=== PATIENT | female | born 1965 ===

== ENCOUNTER 2017-10-28 03:19 | Inpatient (IN) | payer OTHER ==
[2017-10-28] MEDS ORDERED: NACL 0.9% 500 ML 500 ML IV ONE (03:42)
[2017-10-28] MEDS ORDERED: DILAUDID IV ONE (03:42)
[2017-10-28] MEDS ORDERED: ZOFRAN IV ONE (03:42)
--- NOTE | 2017-10-28 03:43 | Emergency Department Report ---
ED General Adult HPI - General Chief complaint: Abdominal Pain Stated complaint: SMALL BOWEL OBSTRUCTION Time Seen by Provider: 10/28/17 03:42 Source: patient, family, EMS (ems notes not available at time of chart dictation), RN notes reviewed, old records reviewed Mode of arrival: Stretcher Limitations: No Limitations - History of Present Illness Initial comments: This is a 52-year-old female who was previously unknown to this provider. Has a past medical history of hypertension and hysterectomy, primary care physician at [facility]. Sent to the ER from outpatient [facility] for evaluation of abdominal pain and CT scan confirms small bowel obstruction with right-sided incarcerated inguinal hernia. Patient's symptoms started approximately one day ago. They're constant. They do not radiate anywhere. Patient given morphine and Zofran prior to my evaluation, she reports that this greatly improved her pain. She reports multiple episodes of emesis. -: Gradual Location: abdomen, pelvis Radiation: non-radiation Quality: aching Consistency: constant Improves with: medication Worsens with: movement Associated Symptoms: loss of appetite, malaise, nausea/vomiting, weakness. denies: chest pain, cough - Related Data Allergies Allergy/AdvReac Type Severity Reaction Status Date / Time Latex, Natural Rubber Allergy Hives Verified 10/28/17 03:32 povidone-iodine Allergy Hives Verified 10/28/17 03:32 [From Betadine] soap [From Betadine] Allergy Hives Verified 10/28/17 03:32 Sulfa (Sulfonamide Allergy Hives Verified 10/28/17 03:32 Antibiotics) ED Review of Systems ROS: Stated complaint: SMALL BOWEL OBSTRUCTION Other details as noted in HPI ED Past Medical Hx - Past Medical History Previous Medical History?: Yes Hx Hypertension: Yes Additional medical history: tyhroid - Surgical History Past Surgical History?: Yes Additional Surgical History: fibroids, left shoulder - Social History Smoking Status: Never Smoker Substance Use Type: None ED Physical Exam - General Limitations: No Limitations General appearance: alert, in no apparent distress - Head Head exam: Present: atraumatic, normocephalic - Eye Eye exam: Present: normal appearance, EOMI. Absent: nystagmus - ENT ENT exam: Present: normal exam, normal orophraynx, mucous membranes moist, normal external ear exam - Neck Neck exam: Present: normal inspection, full ROM - Respiratory Respiratory exam: Present: normal lung sounds bilaterally. Absent: respiratory distress - Cardiovascular Cardiovascular Exam: Present: regular rate, normal rhythm, normal heart sounds. Absent: systolic murmur, diastolic murmur, rubs, gallop - GI/Abdominal GI/Abdominal exam: Present: soft, tenderness, normal bowel sounds, hernia, other (there is a right-sided tender non-reducible inguinal hernia.). Absent: distended, guarding, rebound, rigid - Extremities Exam Extremities exam: Present: normal inspection, full ROM, normal capillary refill. Absent: calf tenderness - Back Exam Back exam: Present: normal inspection, full ROM. Absent: tenderness, CVA tenderness (R), paraspinal tenderness, vertebral tenderness - Neurological Exam Neurological exam: Present: alert, oriented X3, other (Extraocular movements intact. Tongue midline. No facial droop. Facial sensation intact to light touch in the V1, V2, V3 distribution bilaterally. 5 and 5 strength in 4 extremities.. Sensation is intact to light touch in 4 extremities.). Absent: motor sensory deficit - Psychiatric Psychiatric exam: Present: normal affect, normal mood - Skin Skin exam: Present: warm, dry, intact, normal color. Absent: rash ED Course Vital Signs 10/28/17 10/28/17 03:32 04:32 Temperature 98 F Pulse Rate 93 H Respiratory 18 18 Rate Blood Pressure 137/81 O2 Sat by Pulse 95 95 Oximetry - Reevaluation(s) Reevaluation #1: 10/28/17 04:55 Case and physical exam findings presents to the general surgeon on-call, Dr. Mojica, who indicates he is coming in to take the patient to the operating room. Request nothing by mouth. ED Medical Decision Making - Lab Data Result diagrams: 10/28/17 03:50 10/28/17 03:50 Vital Signs 10/28/17 03:32 Temperature 98 F Pulse Rate 93 H Respiratory 18 Rate Blood Pressure 137/81 O2 Sat by Pulse 95 Oximetry Labs 10/28/17 10/28/17 10/28/17 03:50 03:50 03:50 WBC 15.7 H RBC 4.43 Hgb 13.9 Hct 41.3 MCV 93 MCH 32 MCHC 34 RDW 13.8 Plt Count 331 Lymph % (Auto) 13.1 L [place] % (Auto) 5.6 Eos % (Auto) 0.1 Baso % (Auto) 0.3 Lymph # 2.1 [place] # 0.9 H Eos # 0.0 Baso # 0.0 Seg Neutrophils % 80.9 H Seg Neutrophils # 12.7 H PT 12.4 INR 0.88 APTT 29.3 Sodium 137 Potassium 4.7 Chloride 100.4 Carbon Dioxide 24 Anion Gap 17 BUN 10 Creatinine 0.6 L Estimated GFR > 60 BUN/Creatinine Ratio 17 Glucose 111 H Lactic Acid Calcium 8.1 L Blood Type 10/28/17 10/28/17 03:50 03:55 WBC RBC Hgb Hct MCV MCH MCHC RDW Plt Count Lymph % (Auto) [place] % (Auto) Eos % (Auto) Baso % (Auto) Lymph # [place] # Eos # Baso # Seg Neutrophils % Seg Neutrophils # PT INR APTT Sodium Potassium Chloride Carbon Dioxide Anion Gap BUN Creatinine Estimated GFR BUN/Creatinine Ratio Glucose Lactic Acid 0.90 Calcium Blood Type B POSITIVE - Radiology Data Radiology results: report reviewed CT scan with IV contrast from outside facility verbal report: Small bowel obstruction, multiple loops of distended inflamed small bowel noted, fluid noted within the right-sided inguinal hernia, obstructing bowel is noted. - Medical Decision Making Differential diagnosis, including but not limited to: Small bowel instruction secondary to incarcerated right-sided inguinal hernia next Assessment and plan: 52-year-old female sent to the ER for higher level of care from outpatient [facility] for clinically and radiographically confirmed right-sided incarcerated inguinal hernia. The patient is afebrile with reassuring vital signs and declines pain medication. I attempted to manually reduce the right-sided inguinal hernia but was unsuccessful. Case discussed with Dr. Solis, [place] physician who agrees and arthritis placement at this hospital. Case presented to the [facility] physician, Dr. Houston , patient is tentatively accepted to the medical service system and Gen. surgery agrees to follow in consultation. Gen. surgery has been paged, awaiting callback. Critical care attestation.: If time is entered above; I have spent that time in minutes in the direct care of this critically ill patient, excluding procedure time. ED Disposition Clinical Impression: Small bowel obstruction Disposition: OP ADMIT IP TO THIS HOSP Is pt being admited?: Yes Condition: Good Instructions: Abdominal Pain (ED) Referrals: PRIMARY CARE, [Primary Care Provider] - 3-5 Days
[2017-10-28 04:11] LABS: Basophils % (Auto) 0.3 % (0.0-1.8); Eosinophils % (Auto) 0.1 % (0.0-4.3); Hematocrit 41.3 % (30.3-42.9); Hemoglobin 13.9 gm/dl (10.1-14.3); Mean Corpuscular HGB Conc 34 % (30-34); Mean Corpuscular Hemoglobin 32 pg (28-32); Mean Corpuscular Volume 93 fl (79-97); Platelet Count 331 K/mm3 (140-440); Red Blood Count 4.43 M/mm3 (3.65-5.03); Red Cell Distribution Width 13.8 % (13.2-15.2); White Blood Count 15.7 K/mm3 (4.5-11.0)
[2017-10-28 04:21] LABS: INR 0.88 (0.87-1.13)
[2017-10-28 04:22] LABS: Partial Thromboplastin Time 29.3 Sec. (24.2-36.6)
[2017-10-28 04:25] LABS: Anion Gap 17 mmol/L; BUN/Creatinine Ratio 17; Blood Urea Nitrogen 10 mg/dL (7-17); Calcium 8.1 mg/dL (8.4-10.2); Carbon Dioxide 24 mmol/L (22-30); Chloride 100.4 mmol/L (98-107); Glucose 111 mg/dL (65-100); Potassium 4.7 mmol/L (3.6-5.0); Sodium 137 mmol/L (137-145)
--- NOTE | 2017-10-28 04:29 | History and Physical Report ---
History of Present Illness Chief complaint: My stomach hurts History of present illness: 52 YO Female with HTN, Uterine Fibroids S/P Resection presents to ED for evaluation. Pt states that she has experienced abdominal pain for the past 3-4 days with worsening symptoms over the past day. Pt was seen at an outpatient [place] facility and underwent a CT scan and physical exam which revealed an inguinal hernia and CT Scan that showed an incarcerated inguinal hernia on the right side as well as PSBO. Pt seen and evaluated in ED and found to have a hernia that was not amenable to reduction. Pt states that pain is 7/10, constant , worse with movement, relieved somewhat with nonmovement, improved with pain medication and zofran, nonradiating and is associated with nausea, vomiting, weakness, and inability to tolerated oral intake. Pt denies fever, chills,CP, Palpitations, Syncope, BRBPR, loose stools, bowel habit changes, trauma, recent ill contacts, productive cough, ingestion of food/water from new or different sources. Past History Past Medical History: hypertension Past Surgical History: hysterectomy, Other (left Shoulder) Social history: , lives with family. denies: smoking, alcohol abuse, prescription drug abuse Family history: no significant family history (reviewed) Medications and Allergies Allergies Allergy/AdvReac Type Severity Reaction Status Date / Time Latex, Natural Rubber Allergy Hives Verified 10/28/17 03:32 povidone-iodine Allergy Hives Verified 10/28/17 03:32 [From Betadine] soap [From Betadine] Allergy Hives Verified 10/28/17 03:32 Sulfa (Sulfonamide Allergy Hives Verified 10/28/17 03:32 Antibiotics) Review of Systems Constitutional: no weight loss, no weight gain, no fever, no chills, no sweats, no night sweats Ears, nose, mouth and throat: no ear pain, no ear discharge, no tinnitis, no decreased hearing, no nose pain, no nasal congestion, no nasal discharge Breasts: no change in shape, no swelling, no mass Cardiovascular: no chest pain, no orthopnea, no palpitations, no rapid/ irregular heart beat, no edema, no syncope, no lightheadedness Respiratory: no cough, no cough with sputum, no excessive sputum, no hemoptysis , no shortness of breath Gastrointestinal: abdominal pain, nausea, vomiting, loss of appetite, no diarrhea, no constipation, no change in bowel habits, no hematemesis, no coffee ground emesis, no melena, no hematochezia Genitourinary Female: no pelvic pain, no flank pain, no menorrhagia, no dysuria , no urinary frequency, no urgency Rectal: no pain, no incontinence, no bleeding Musculoskeletal: no neck stiffness, no neck pain, no shooting arm pain, no arm numbness/tingling, no low back pain, no shooting leg pain, no leg numbness/ tingling Integumentary: no rash, no pruritis, no redness, no sores, no wounds Neurological: no head injury, no transient paralysis, no paralysis, no weakness , no parathesias, no numbness, no tingling, no seizures, no syncope Psychiatric: no anxiety, no memory loss, no change in sleep habits, no sleep disturbances, no insomnia, no hypersomnia, no change in appetite, no change in libido Endocrine: no cold intolerance, no heat intolerance, no polyphagia, no excessive thirst, no polydipsia, no polyuria, no nocturia Hematologic/Lymphatic: no easy bruising, no easy bleeding Allergic/Immunologic: no urticaria, no allergic rhinitis, no wheezing Exam - Constitutional Vitals: Temp Pulse Resp BP Pulse Ox 98 F 93 H 18 137/81 95 10/28/17 03:32 10/28/17 03:32 10/28/17 03:32 10/28/17 03:32 10/28/17 03:32 General appearance: Present: mild distress - EENT Eyes: Present: PERRL ENT: hearing intact, clear oral mucosa - Neck Neck: Present: supple, normal ROM - Respiratory Respiratory effort: normal Respiratory: bilateral: CTA - Cardiovascular Heart Sounds: Present: S1 & S2. Absent: rub, click - Extremities Extremities: pulses symmetrical, No edema Peripheral Pulses: within normal limits - Abdominal General gastrointestinal: Present: soft, tender, hypoactive bowel sounds, hernia. Absent: hepatomegaly, splenomegaly Localized gastrointestinal: tender: RLQ, guarding: RLQ, rebound: RLQ Female genitourinary: Present: normal - Rectal Rectal Exam: normal rectal tone - Integumentary Integumentary: Present: clear, warm, dry - Musculoskeletal Musculoskeletal: gait normal, strength equal bilaterally - Psychiatric Psychiatric: appropriate mood/affect, intact judgment & insight Results - Labs CBC & Chem 7: 10/28/17 03:50 10/28/17 03:50 Labs: Abnormal lab results 10/28/17 10/28/17 Range/Units 03:50 03:50 WBC 15.7 H (4.5-11.0) K/mm3 Lymph % (Auto) 13.1 L (13.4-35.0) % [place] # 0.9 H (0.0-0.8) K/mm3 Seg Neutrophils % 80.9 H (40.0-70.0) % Seg Neutrophils # 12.7 H (1.8-7.7) K/mm3 Creatinine 0.6 L (0.7-1.2) mg/dL Glucose 111 H (65-100) mg/dL Calcium 8.1 L (8.4-10.2) mg/dL Assessment and Plan - Patient Problems (1) Sepsis Current Visit: Yes Status: Acute Qualifiers: Sepsis type: sepsis due to unspecified organism Qualified Code(s): A41.9 - Sepsis, unspecified organism Plan to address problem: IV abx, Serial lactic acid, monitor uop q shift, urinalysis, blood cultures, IVF resuscitation, (2) Incarcerated inguinal hernia Current Visit: Yes Status: Acute Plan to address problem: Bowel rest, pain control, serial lactic acid level, CT abdomen pelvis, Surgery consulted, bowel rest, (3) HTN (hypertension) Current Visit: Yes Status: Acute Plan to address problem: monitor bp q shift, IV hydralazine prn for systolic above 155, continue medical management. (4) Small bowel obstruction Current Visit: Yes Status: Acute Plan to address problem: Bowel rest, surgery consulted, serial abdominal exam, (5) DVT prophylaxis Current Visit: Yes Status: Acute
[2017-10-28] MEDS ORDERED: VANCOMYCIN VIAL IV ONE (04:33)
[2017-10-28] MEDS ORDERED: NACL 0.9% 1000 ML IV ONE (04:33)
[2017-10-28] MEDS ORDERED: TYLENOL PO PRN (04:33)
[2017-10-28] MEDS ORDERED: PROVENTIL IH PRN (04:33)
[2017-10-28] MEDS ORDERED: VANCOMYCIN 1,500 MG in NACL 0.9% 500 ML 500 ML IV ONE (05:00)
[2017-10-28] MEDS ORDERED: VANCOMYCIN PHARMACY TO DOSE IV SCH (05:00)
[2017-10-28] MEDS ORDERED: SUBLIMAZE ONE (05:57)
[2017-10-28] MEDS ORDERED: DIPRIVAN 10 MG/ML IV ONE (05:57)
[2017-10-28] MEDS ORDERED: ZOSYN/NS 4.5GM/100ML 4.5 GM/100 ML VIAL IV SCH (06:00)
[2017-10-28] MEDS ORDERED: XYLOCAINE MPF 2% ONE (06:03)
[2017-10-28] MEDS ORDERED: ZEMURON IV ONE (06:03)
[2017-10-28] MEDS ORDERED: QUELICIN ONE (06:03)
[2017-10-28] MEDS ORDERED: APRESOLINE IV PRN (06:08)
[2017-10-28] MEDS ORDERED: PEPCID IV ONE (06:47)
[2017-10-28] MEDS ORDERED: NACL 0.9% IR ONE (06:53)
--- NOTE | 2017-10-28 06:54 | Anesthesia Day of Surgery ---
Anesthesia Day of Surgery - Day of Surgery Patient Examined: Yes Patient H&P Reviewed: Yes Patient is NPO: Yes (FSP)
--- NOTE | 2017-10-28 06:54 | Anesthesia Consultation ---
Anesthesia Consult and Med Hx Date of service: 10/28/17 - Airway Anesthetic Teeth Evaluation: Good ROM Head & Neck: Adequate Mental/Hyoid Distance: Adequate Mallampati Class: Class II Intubation Access Assessment: Probably Good - Pulmonary Exam CTA: Yes - Cardiac Exam Cardiac Exam: RRR - Pre-Operative Health Status ASA Pre-Surgery Classification: ASA2, Emergency Proposed Anesthetic Plan: General - Cardiovascular System Hx Hypertension: Yes - Additional Comments Anesthesia Medical History Comments: Incarcerated inguinal hernia eith SBO. Recent nausea and vomiting.
[2017-10-28] MEDS ORDERED: ZOFRAN IV PRN (06:55)
[2017-10-28] MEDS ORDERED: PEPCID IV NR (07:00)
[2017-10-28] MEDS ORDERED: DECADRON ONE (07:25)
[2017-10-28] MEDS ORDERED: LACTATED RINGERS 1,000 ML ONE (07:39)
[2017-10-28] MEDS ORDERED: TORADOL ONE (07:48)
[2017-10-28] MEDS ORDERED: ZOFRAN ONE (07:48)
[2017-10-28] MEDS ORDERED: NEOSTIGMINE ONE (07:49)
[2017-10-28] MEDS ORDERED: ROBINUL ONE ×2 (07:49→08:13)
--- NOTE | 2017-10-28 08:46 | Post Anesthesia Evaluation ---
- Post Anesthesia Evaluation Patient Participated: Yes Airway Patent: Yes Stable Respiratory Function: Yes Temp > 96.8F: Yes Pain Manageable: Yes Adequeate Hydration: Yes Anesthesia Complications: No
[2017-10-28] MEDS ORDERED: DILAUDID ONE (09:13)
[2017-10-28] MEDS: DILAUDID IV PRN ×2 (09:15→09:25)
--- NOTE | 2017-10-28 10:21 | Operative Report ---
PREOPERATIVE DIAGNOSIS: Small bowel obstruction secondary to incarcerated right inguinal hernia. POSTOPERATIVE DIAGNOSIS: Small bowel obstruction secondary to incarcerated right inguinal hernia. PROCEDURE: 1. Attempted reduction of incarcerated hernia. 2. Exploratory laparotomy and right inguinal hernia repair with mesh after reduction of incarceration. SURGEON: Damian Mojica MD ANESTHESIA: General. ESTIMATED BLOOD LOSS: Minimal. DRAINS: None. COMPLICATIONS: None. FINDINGS: Indeed an incarcerated right inguinal hernia involving small bowel. Fortunately, small was viable upon reduction. DESCRIPTION OF PROCEDURE: The patient was taken to the operating room, prepped and draped in usual sterile fashion and placed in a steep Trendelenburg position. Under full relaxation, attempts were made to reduce the incarcerated hernia, but this proved unsuccessful. Midline incision was then made and abdomen entered. Upon entrance into the abdomen again, incarcerated small bowel inguinal hernia was indeed confirmed. The bowel was slowly retracted until it was able to be reduced. The bowel was then carefully inspected and noted to be viable. The hernia was then closed with interrupted #1 Surgilon sutures. A Composix Parietex mesh was then also on laid over the repair site and tacked to Rogelio's ligament and anteriorly to the rectus muscle and laterally above iliopubic tract. The area was then carefully inspected and noted to be well covered and reconstructed. The small bowel functions once again inspected and noted to be perfectly viable. The entire area was then irrigated copiously and dried. Checked for hemostasis and noted to be dry. Fascia was then closed with interrupted #1 Vicryl suture. Subcutaneous tissues irrigated and skin closed with viet. The patient tolerated the procedure well and left the OR in stable condition. JOB# [id number] FP/NTS
--- NOTE | 2017-10-28 10:38 | Progress Note ---
Assessment and Plan Assessment and plan: Sepsis IV abx, Serial lactic acid, monitor uop q shift, f/u blood cultures, IVF resuscitation, (2) Incarcerated inguinal hernia Pt. s/p exp lap and right inguinal hernia repair with mesh after reduction of incarceration (3) HTN (hypertension) monitor bp q shift, IV hydralazine prn for systolic above 155, continue medical management. (4) Small bowel obstruction S/p surgery as above. Surgery following History Interval history: Pt seen in PACU Hospitalist Physical - Constitutional Vitals: Temp Pulse Resp BP Pulse Ox 98.7 F 93 H 18 147/84 96 10/28/17 09:50 10/28/17 09:50 10/28/17 09:50 10/28/17 09:50 10/28/17 09:50 General appearance: Present: no acute distress, other (with NRB mask) - EENT Eyes: Present: PERRL, EOM intact ENT: hearing intact, clear oral mucosa, dentition normal - Neck Neck: Present: supple, normal ROM - Respiratory Respiratory effort: normal Respiratory: bilateral: diminished - Cardiovascular Rhythm: regular Heart Sounds: Present: S1 & S2. Absent: gallop, rub - Extremities Extremities: no ischemia, No edema, Full ROM - Abdominal General gastrointestinal: soft, non-tender, non-distended, normal bowel sounds - Integumentary Integumentary: Present: clear, warm, dry - Neurologic Neurologic: CNII-XII intact, moves all extremities Results - Labs CBC & Chem 7: 10/28/17 03:50 10/28/17 03:50 Labs: Laboratory Last Values WBC 15.7 K/mm3 (4.5-11.0) H 10/28/17 03:50 RBC 4.43 M/mm3 (3.65-5.03) 10/28/17 03:50 Hgb 13.9 gm/dl (10.1-14.3) 10/28/17 03:50 Hct 41.3 % (30.3-42.9) 10/28/17 03:50 MCV 93 fl (79-97) 10/28/17 03:50 MCH 32 pg (28-32) 10/28/17 03:50 MCHC 34 % (30-34) 10/28/17 03:50 RDW 13.8 % (13.2-15.2) 10/28/17 03:50 Plt Count 331 K/mm3 (140-440) 10/28/17 03:50 Lymph % (Auto) 13.1 % (13.4-35.0) L 10/28/17 03:50 [place] % (Auto) 5.6 % (0.0-7.3) 10/28/17 03:50 Eos % (Auto) 0.1 % (0.0-4.3) 10/28/17 03:50 Baso % (Auto) 0.3 % (0.0-1.8) 10/28/17 03:50 Lymph # 2.1 K/mm3 (1.2-5.4) 10/28/17 03:50 [place] # 0.9 K/mm3 (0.0-0.8) H 10/28/17 03:50 Eos # 0.0 K/mm3 (0.0-0.4) 10/28/17 03:50 Baso # 0.0 K/mm3 (0.0-0.1) 10/28/17 03:50 Seg Neutrophils % 80.9 % (40.0-70.0) H 10/28/17 03:50 Seg Neutrophils # 12.7 K/mm3 (1.8-7.7) H 10/28/17 03:50 PT 12.4 Sec. (12.2-14.9) 10/28/17 03:50 INR 0.88 (0.87-1.13) 10/28/17 03:50 APTT 29.3 Sec. (24.2-36.6) 10/28/17 03:50 Sodium 137 mmol/L (137-145) 10/28/17 03:50 Potassium 4.7 mmol/L (3.6-5.0) 10/28/17 03:50 Chloride 100.4 mmol/L (98-107) 10/28/17 03:50 Carbon Dioxide 24 mmol/L (22-30) 10/28/17 03:50 Anion Gap 17 mmol/L 10/28/17 03:50 BUN 10 mg/dL (7-17) 10/28/17 03:50 Creatinine 0.6 mg/dL (0.7-1.2) L 10/28/17 03:50 Estimated GFR > 60 ml/min 10/28/17 03:50 BUN/Creatinine Ratio 17 % 10/28/17 03:50 Glucose 111 mg/dL (65-100) H 10/28/17 03:50 Lactic Acid 0.90 mmol/L (0.7-2.0) 10/28/17 03:50 Calcium 8.1 mg/dL (8.4-10.2) L 10/28/17 03:50 Blood Type B POSITIVE 10/28/17 03:55 Antibody Screen Negative 10/28/17 03:55
[2017-10-28 12:08] LABS: Bilirubin,Urine NEG (Negative); Blood,Urine MOD (Negative); Ketones,Urine NEG (Negative); Leukocyte Esterase,Urine NEG (Negative); Mucus,Urine FEW /HPF; Nitrite,Urine NEG (Negative); Protein,Urine <15 mg/dL mg/dL (Negative); Urobilinogen,Urine < 2.0 mg/dL (<2.0)
[2017-10-28] MEDS: D5/0.45NS 1,000 ML IV SCH (17:00)
[2017-10-28] MEDS: MORPHINE IV PRN ×2 (17:01→22:31)
[2017-10-28] MEDS ORDERED: VANCOMYCIN/NS 1 GM/250 ML 1 GM/250 ML BAG IV SCH (18:00)
--- NOTE | 2017-10-28 23:16 | Consultation ---
REASON FOR CONSULTATION: Incarcerated right inguinal hernia with subsequent small-bowel obstruction. HISTORY OF PRESENT ILLNESS: The patient is a pleasant 52-year-old female who presents to the Emergency Room with recent onset of right groin pain accompanied by nausea and vomiting. PAST MEDICAL HISTORY: Pertinent for hypertension. PAST SURGICAL HISTORY: Status post removal of uterine fibroid, also T and A and left shoulder surgery. ALLERGIES: Allergic to SULFA. MEDICATIONS: Include lisinopril and aspirin. FAMILY HISTORY: Negative. SOCIAL HISTORY: Negative. REVIEW OF SYSTEMS: Noncontributory. PHYSICAL EXAMINATION: GENERAL: At this time reveals the patient to be awake, alert, cooperative, in moderate discomfort, but in no acute distress. VITAL SIGNS: Show blood pressure 154/77, pulse of 103, respirations of 16. ABDOMEN: Examination of the abdomen reveals it to be soft and nontender. There is, however, a nonreducible right groin mass consistent with incarcerated inguinal hernia. DIAGNOSTIC STUDIES: A CT scan of the abdomen is consistent with an incarcerated right inguinal hernia and subsequent small-bowel obstruction. IMPRESSION: At this time is a hypertensive 52-year-old female with incarcerated right inguinal hernia and a small-bowel obstruction. Plan is to proceed with emergency surgical intervention. We will attempt a reduction of the hernia under anesthesia. Possible subsequent then right groin exploration and hernia repair with mesh. If hernia is not able to be reduced, then we will proceed with exploratory laparotomy and again a hernia repair with mesh, possible bowel resection. JOB# [id number] FP/NTS
[2017-10-29] MEDS: D5/0.45NS 1,000 ML IV SCH ×3 (02:35→17:00)
[2017-10-29] MEDS: MORPHINE IV PRN ×2 (02:59→12:25)
[2017-10-29 05:56] LABS: Basophils % (Auto) 0.2 % (0.0-1.8); Eosinophils % (Auto) 0.2 % (0.0-4.3); Hematocrit 39.2 % (30.3-42.9); Hemoglobin 12.5 gm/dl (10.1-14.3); Mean Corpuscular HGB Conc 32 % (30-34); Mean Corpuscular Hemoglobin 30 pg (28-32); Mean Corpuscular Volume 94 fl (79-97); Platelet Count 315 K/mm3 (140-440); Red Blood Count 4.17 M/mm3 (3.65-5.03); Red Cell Distribution Width 13.9 % (13.2-15.2); White Blood Count 15.1 K/mm3 (4.5-11.0)
[2017-10-29 06:14] LABS: Anion Gap 14 mmol/L; BUN/Creatinine Ratio 12; Blood Urea Nitrogen 7 mg/dL (7-17); Calcium 7.9 mg/dL (8.4-10.2); Carbon Dioxide 28 mmol/L (22-30); Chloride 102.7 mmol/L (98-107); Glucose 101 mg/dL (65-100); Potassium 3.7 mmol/L (3.6-5.0); Sodium 141 mmol/L (137-145)
--- NOTE | 2017-10-29 10:38 | Progress Note ---
Assessment and Plan Assessment and plan: Sepsis IV abx, Serial lactic acid, monitor uop q shift, f/u blood cultures, IVF resuscitation. Patient still with leukocytosis (2) Incarcerated inguinal hernia Pt. s/p exp lap and right inguinal hernia repair with mesh after reduction of incarceration (3) HTN (hypertension) monitor bp q shift, IV hydralazine prn for systolic above 155, continue medical management. (4) Small bowel obstruction S/p surgery as above. Surgery following. Advance diet per surgery History Interval history: c/o abd pain Hospitalist Physical - Constitutional Vitals: Temp Pulse Resp BP Pulse Ox 99.1 F 89 18 135/80 99 10/29/17 07:56 10/29/17 07:56 10/29/17 07:56 10/29/17 07:56 10/29/17 08:43 General appearance: Present: no acute distress, other (with NRB mask) - EENT Eyes: Present: PERRL, EOM intact ENT: hearing intact, clear oral mucosa, dentition normal - Neck Neck: Present: supple, normal ROM - Respiratory Respiratory effort: normal Respiratory: bilateral: CTA - Cardiovascular Rhythm: regular Heart Sounds: Present: S1 & S2. Absent: gallop, rub - Extremities Extremities: no ischemia, No edema, Full ROM - Abdominal General gastrointestinal: soft, tender, non-distended, normal bowel sounds Localized gastrointestinal: tender: diffuse - Integumentary Integumentary: Present: clear, warm, dry - Neurologic Neurologic: CNII-XII intact, moves all extremities Results - Labs CBC & Chem 7: 10/29/17 05:31 10/29/17 05:31 Labs: Laboratory Last Values WBC 15.1 K/mm3 (4.5-11.0) H 10/29/17 05:31 RBC 4.17 M/mm3 (3.65-5.03) 10/29/17 05:31 Hgb 12.5 gm/dl (10.1-14.3) 10/29/17 05:31 Hct 39.2 % (30.3-42.9) 10/29/17 05:31 MCV 94 fl (79-97) 10/29/17 05:31 MCH 30 pg (28-32) 10/29/17 05:31 MCHC 32 % (30-34) 10/29/17 05:31 RDW 13.9 % (13.2-15.2) 10/29/17 05:31 Plt Count 315 K/mm3 (140-440) 10/29/17 05:31 Lymph % (Auto) 16.5 % (13.4-35.0) 10/29/17 05:31 [place] % (Auto) 12.9 % (0.0-7.3) H 10/29/17 05:31 Eos % (Auto) 0.2 % (0.0-4.3) 10/29/17 05:31 Baso % (Auto) 0.2 % (0.0-1.8) 10/29/17 05:31 Lymph # 2.5 K/mm3 (1.2-5.4) 10/29/17 05:31 [place] # 2.0 K/mm3 (0.0-0.8) H 10/29/17 05:31 Eos # 0.0 K/mm3 (0.0-0.4) 10/29/17 05:31 Baso # 0.0 K/mm3 (0.0-0.1) 10/29/17 05:31 Seg Neutrophils % 70.2 % (40.0-70.0) H 10/29/17 05:31 Seg Neutrophils # 10.6 K/mm3 (1.8-7.7) H 10/29/17 05:31 PT 12.4 Sec. (12.2-14.9) 10/28/17 03:50 INR 0.88 (0.87-1.13) 10/28/17 03:50 APTT 29.3 Sec. (24.2-36.6) 10/28/17 03:50 Sodium 141 mmol/L (137-145) 10/29/17 05:31 Potassium 3.7 mmol/L (3.6-5.0) D 10/29/17 05:31 Chloride 102.7 mmol/L (98-107) 10/29/17 05:31 Carbon Dioxide 28 mmol/L (22-30) 10/29/17 05:31 Anion Gap 14 mmol/L 10/29/17 05:31 BUN 7 mg/dL (7-17) 10/29/17 05:31 Creatinine 0.6 mg/dL (0.7-1.2) L 10/29/17 05:31 Estimated GFR > 60 ml/min 10/29/17 05:31 BUN/Creatinine Ratio 12 % 10/29/17 05:31 Glucose 101 mg/dL (65-100) H 10/29/17 05:31 Lactic Acid 1.10 mmol/L (0.7-2.0) 10/28/17 13:18 Calcium 7.9 mg/dL (8.4-10.2) L 10/29/17 05:31 Urine Color Yellow (Yellow) 10/28/17 11:30 Urine Turbidity Clear (Clear) 10/28/17 11:30 Urine pH 5.0 (5.0-7.0) 10/28/17 11:30 Ur Specific [place] 1.023 (1.003-1.030) 10/28/17 11:30 Urine Protein <15 mg/dl mg/dL (Negative) 10/28/17 11:30 Urine Glucose (UA) 50 mg/dL (Negative) 10/28/17 11:30 Urine Ketones Neg mg/dL (Negative) 10/28/17 11:30 Urine Blood Mod (Negative) 10/28/17 11:30 Urine Nitrite Neg (Negative) 10/28/17 11:30 Urine Bilirubin Neg (Negative) 10/28/17 11:30 Urine Urobilinogen < 2.0 mg/dL (<2.0) 10/28/17 11:30 Ur Leukocyte Esterase Neg (Negative) 10/28/17 11:30 Urine WBC (Auto) 3.0 /HPF (0.0-6.0) 10/28/17 11:30 Urine RBC (Auto) 16.0 /HPF (0.0-6.0) 10/28/17 11:30 Urine Mucus Few /HPF 10/28/17 11:30 Blood Type B POSITIVE 10/28/17 03:55 Antibody Screen Negative 10/28/17 03:55
--- NOTE | 2017-10-29 14:47 | Progress Note ---
Assessment and Plan POD # 1 Pt feeling well. no compl. burping - flatus. ambulating down halls Abd soft, dressings dry. - BS continue ambulation and IS possible cl liq in am pending assessment Selected Entries 10/29/17 13:00 Temperature 97.7 F Respiratory 18 Rate Blood Pressure 151/83 [Left] Laboratory Tests 10/29/17 10/29/17 05:31 05:31 WBC 15.1 H Hgb 12.5 Hct 39.2 Sodium 141 Potassium 3.7 D Chloride 102.7 Carbon Dioxide 28 BUN 7 Creatinine 0.6 L Objective Vital Signs - 12hr 10/29/17 10/29/17 10/29/17 04:39 07:56 08:43 Temperature 99.0 F 99.1 F Pulse Rate 77 89 Respiratory 20 18 Rate Blood Pressure 135/80 Blood Pressure 125/75 [Left] O2 Sat by Pulse 96 97 99 Oximetry 10/29/17 10/29/17 12:00 13:00 Temperature 97.7 F Pulse Rate 100 H 100 H Respiratory 18 Rate Blood Pressure Blood Pressure 151/83 [Left] O2 Sat by Pulse 98 Oximetry - Labs 10/29/17 05:31 10/29/17 05:31 Diabetes panel 10/29/17 Range/Units 05:31 Sodium 141 (137-145) mmol/L Potassium 3.7 D (3.6-5.0) mmol/L Chloride 102.7 (98-107) mmol/L Carbon Dioxide 28 (22-30) mmol/L BUN 7 (7-17) mg/dL Creatinine 0.6 L (0.7-1.2) mg/dL Glucose 101 H (65-100) mg/dL Calcium 7.9 L (8.4-10.2) mg/dL Calcium panel 10/29/17 Range/Units 05:31 Calcium 7.9 L (8.4-10.2) mg/dL Pituitary panel 10/29/17 Range/Units 05:31 Sodium 141 (137-145) mmol/L Potassium 3.7 D (3.6-5.0) mmol/L Chloride 102.7 (98-107) mmol/L Carbon Dioxide 28 (22-30) mmol/L BUN 7 (7-17) mg/dL Creatinine 0.6 L (0.7-1.2) mg/dL Glucose 101 H (65-100) mg/dL Calcium 7.9 L (8.4-10.2) mg/dL Adrenal panel 10/29/17 Range/Units 05:31 Sodium 141 (137-145) mmol/L Potassium 3.7 D (3.6-5.0) mmol/L Chloride 102.7 (98-107) mmol/L Carbon Dioxide 28 (22-30) mmol/L BUN 7 (7-17) mg/dL Creatinine 0.6 L (0.7-1.2) mg/dL Glucose 101 H (65-100) mg/dL Calcium 7.9 L (8.4-10.2) mg/dL
[2017-10-29] MEDS ORDERED: ZOFRAN IV PRN (19:38)
[2017-10-29] MEDS: TORADOL IV PRN (20:26)
[2017-10-30 05:01] LABS: Basophils % (Auto) 0.3 % (0.0-1.8); Eosinophils % (Auto) 0.5 % (0.0-4.3); Hematocrit 37.1 % (30.3-42.9); Hemoglobin 12.5 gm/dl (10.1-14.3); Mean Corpuscular HGB Conc 34 % (30-34); Mean Corpuscular Hemoglobin 32 pg (28-32); Mean Corpuscular Volume 94 fl (79-97); Platelet Count 288 K/mm3 (140-440); Red Blood Count 3.97 M/mm3 (3.65-5.03); Red Cell Distribution Width 14.2 % (13.2-15.2)
[2017-10-30 05:07] LABS: Anion Gap 11 mmol/L; BUN/Creatinine Ratio 8; Blood Urea Nitrogen 5 mg/dL (7-17); Calcium 8.1 mg/dL (8.4-10.2); Carbon Dioxide 30 mmol/L (22-30); Chloride 100.3 mmol/L (98-107); Glucose 108 mg/dL (65-100); Potassium 3.6 mmol/L (3.6-5.0); Sodium 138 mmol/L (137-145)
[2017-10-30] MEDS: TORADOL IV PRN (05:24)
[2017-10-30] MEDS: D5/0.45NS 1,000 ML IV SCH ×3 (05:25→16:05)
[2017-10-30] MEDS ORDERED: DULCOLAX PR PRN (11:09)
--- NOTE | 2017-10-30 11:31 | Progress Note ---
Assessment and Plan POD #2 Pt feeling well. ambulating down halls. neg flatus. burping Abd - dressings dry. 1+ distention non tender wbc down ileus stable wbc down continue ambulation ice chips and popsicles dulcolax supp Selected Entries 10/30/17 10/30/17 05:01 08:13 Temperature 98.9 F Pulse Rate 84 O2 Sat by Pulse 96 Oximetry Blood Pressure 140/78 Laboratory Tests 10/29/17 10/30/17 10/30/17 05:31 04:29 04:29 WBC 15.1 H 9.0 Hgb 12.5 Hct 37.1 Sodium 138 Potassium 3.6 Chloride 100.3 Carbon Dioxide 30 Anion Gap 11 BUN 5 L Creatinine 0.6 L Objective Vital Signs - 12hr 10/30/17 10/30/17 10/30/17 00:14 05:01 08:13 Temperature 98.9 F 98.9 F Pulse Rate 78 84 Respiratory 16 16 Rate Blood Pressure 137/77 140/78 O2 Sat by Pulse 97 96 96 Oximetry - Labs 10/30/17 04:29 10/30/17 04:29 Diabetes panel 10/30/17 Range/Units 04:29 Sodium 138 (137-145) mmol/L Potassium 3.6 (3.6-5.0) mmol/L Chloride 100.3 (98-107) mmol/L Carbon Dioxide 30 (22-30) mmol/L BUN 5 L (7-17) mg/dL Creatinine 0.6 L (0.7-1.2) mg/dL Glucose 108 H (65-100) mg/dL Calcium 8.1 L (8.4-10.2) mg/dL Calcium panel 10/30/17 Range/Units 04:29 Calcium 8.1 L (8.4-10.2) mg/dL Pituitary panel 10/30/17 Range/Units 04:29 Sodium 138 (137-145) mmol/L Potassium 3.6 (3.6-5.0) mmol/L Chloride 100.3 (98-107) mmol/L Carbon Dioxide 30 (22-30) mmol/L BUN 5 L (7-17) mg/dL Creatinine 0.6 L (0.7-1.2) mg/dL Glucose 108 H (65-100) mg/dL Calcium 8.1 L (8.4-10.2) mg/dL Adrenal panel 10/30/17 Range/Units 04:29 Sodium 138 (137-145) mmol/L Potassium 3.6 (3.6-5.0) mmol/L Chloride 100.3 (98-107) mmol/L Carbon Dioxide 30 (22-30) mmol/L BUN 5 L (7-17) mg/dL Creatinine 0.6 L (0.7-1.2) mg/dL Glucose 108 H (65-100) mg/dL Calcium 8.1 L (8.4-10.2) mg/dL
--- NOTE | 2017-10-30 14:26 | Progress Note ---
Assessment and Plan Assessment and plan: Small bowel obstruction due to incacerated inguinal hernia s/p exploratory lap, reduction of hernia, hernia repair with mesh placement. Incacerated inguinal hernia s/p surgery Hypertension. BP stable DVT prophylaxis with SCDs. She is ambulatory. Full code status History Interval history: Patient had surgery 2 days ago for small bowel obstruction from incarcerated inguinal hernia . Hospitalist Physical - Physical exam Narrative exam: GEN APPEARANCE : Not in acute distress, HEENT: Normocephalic Atraumatic NECK : supple, no JVD LUNGS: clear to auscultation bilaterally, no rales, no wheeze HEART: S1 and S2 regular, no murmurs, rubs or gallop, ABD: Soft, mild tender,abdominal binder, no distension, EXT: No edema, no clubbing, no cyanosis NEURO: Awake,alert,oriented x 3, moves all extremities, non focal Psych: Normal mood - Constitutional Vitals: Temp Pulse Resp BP Pulse Ox 98.9 F 84 16 140/78 96 10/30/17 05:01 10/30/17 05:01 10/30/17 05:01 10/30/17 05:01 10/30/17 08:13 General appearance: Present: no acute distress, other (with NRB mask) Results - Labs CBC & Chem 7: 10/30/17 04:29 11/01/17 05:29 Labs: Laboratory Last Values WBC 9.0 K/mm3 (4.5-11.0) 10/30/17 04:29 RBC 3.97 M/mm3 (3.65-5.03) 10/30/17 04:29 Hgb 12.5 gm/dl (10.1-14.3) 10/30/17 04:29 Hct 37.1 % (30.3-42.9) 10/30/17 04:29 MCV 94 fl (79-97) 10/30/17 04:29 MCH 32 pg (28-32) 10/30/17 04:29 MCHC 34 % (30-34) 10/30/17 04:29 RDW 14.2 % (13.2-15.2) 10/30/17 04:29 Plt Count 288 K/mm3 (140-440) 10/30/17 04:29 Lymph % (Auto) 27.9 % (13.4-35.0) 10/30/17 04:29 [place] % (Auto) 13.6 % (0.0-7.3) H 10/30/17 04:29 Eos % (Auto) 0.5 % (0.0-4.3) 10/30/17 04:29 Baso % (Auto) 0.3 % (0.0-1.8) 10/30/17 04:29 Lymph # 2.5 K/mm3 (1.2-5.4) 10/30/17 04:29 [place] # 1.2 K/mm3 (0.0-0.8) H 10/30/17 04:29 Eos # 0.0 K/mm3 (0.0-0.4) 10/30/17 04:29 Baso # 0.0 K/mm3 (0.0-0.1) 10/30/17 04:29 Seg Neutrophils % 57.7 % (40.0-70.0) 10/30/17 04:29 Seg Neutrophils # 5.2 K/mm3 (1.8-7.7) 10/30/17 04:29 PT 12.4 Sec. (12.2-14.9) 10/28/17 03:50 INR 0.88 (0.87-1.13) 10/28/17 03:50 APTT 29.3 Sec. (24.2-36.6) 10/28/17 03:50 Sodium 138 mmol/L (137-145) 10/30/17 04:29 Potassium 3.6 mmol/L (3.6-5.0) 10/30/17 04:29 Chloride 100.3 mmol/L (98-107) 10/30/17 04:29 Carbon Dioxide 30 mmol/L (22-30) 10/30/17 04:29 Anion Gap 11 mmol/L 10/30/17 04:29 BUN 5 mg/dL (7-17) L 10/30/17 04:29 Creatinine 0.6 mg/dL (0.7-1.2) L 10/30/17 04:29 Estimated GFR > 60 ml/min 10/30/17 04:29 BUN/Creatinine Ratio 8 % 10/30/17 04:29 Glucose 108 mg/dL (65-100) H 10/30/17 04:29 Lactic Acid 1.10 mmol/L (0.7-2.0) 10/28/17 13:18 Calcium 8.1 mg/dL (8.4-10.2) L 10/30/17 04:29 Urine Color Yellow (Yellow) 10/28/17 11:30 Urine Turbidity Clear (Clear) 10/28/17 11:30 Urine pH 5.0 (5.0-7.0) 10/28/17 11:30 Ur Specific [place] 1.023 (1.003-1.030) 10/28/17 11:30 Urine Protein <15 mg/dl mg/dL (Negative) 10/28/17 11:30 Urine Glucose (UA) 50 mg/dL (Negative) 10/28/17 11:30 Urine Ketones Neg mg/dL (Negative) 10/28/17 11:30 Urine Blood Mod (Negative) 10/28/17 11:30 Urine Nitrite Neg (Negative) 10/28/17 11:30 Urine Bilirubin Neg (Negative) 10/28/17 11:30 Urine Urobilinogen < 2.0 mg/dL (<2.0) 10/28/17 11:30 Ur Leukocyte Esterase Neg (Negative) 10/28/17 11:30 Urine WBC (Auto) 3.0 /HPF (0.0-6.0) 10/28/17 11:30 Urine RBC (Auto) 16.0 /HPF (0.0-6.0) 10/28/17 11:30 Urine Mucus Few /HPF 10/28/17 11:30 Blood Type B POSITIVE 10/28/17 03:55 Antibody Screen Negative 10/28/17 03:55
--- NOTE | 2017-10-31 10:13 | Progress Note ---
Assessment and Plan POD #3 Pt feeling well. 2 BM's Abd soft. hypoactive BS stable attempt cl liq non carbonated Selected Entries 10/31/17 07:00 Temperature 98.7 F Pulse Rate 87 Respiratory 18 Rate Blood Pressure 139/76 [Left] Objective Vital Signs - 12hr 10/31/17 10/31/17 10/31/17 00:12 04:47 07:00 Temperature 98.6 F 98.6 F 98.7 F Pulse Rate 82 74 87 Respiratory 18 18 18 Rate Blood Pressure 119/77 139/81 Blood Pressure 139/76 [Left] O2 Sat by Pulse 96 96 95 Oximetry - Labs 10/30/17 04:29 10/30/17 04:29
[2017-10-31] MEDS: D5/0.45NS 1,000 ML IV SCH ×2 (14:18→22:10)
--- NOTE | 2017-10-31 18:54 | Progress Note ---
Assessment and Plan Assessment and plan: Small bowel obstruction due to incacerated inguinal hernia s/p exploratory lap, reduction of hernia, hernia repair and mesh placement. On clear liquid diet. No abdominal pain. Incacerated inguinal hernia s/p surgery Hypertension. BP stable DVT prophylaxis with SCDs. She is ambulatory. Full code status History Interval history: Patient had surgery 2 days ago for small bowel obstruction from incarcerated inguinal hernia . Started on clear liquid diet, No abdominal pain, No vomiting had bowel movement Hospitalist Physical - Physical exam Narrative exam: GEN APPEARANCE : Not in acute distress, HEENT: Normocephalic Atraumatic NECK : supple, no JVD LUNGS: clear to auscultation bilaterally, no rales, no wheeze HEART: S1 and S2 regular, no murmurs, rubs or gallop, ABD: Soft, mild tender,abdominal binder, no distension, bowel sounds present EXT: No edema, no clubbing, no cyanosis NEURO: Awake,alert,oriented x 3, moves all extremities, non focal Psych: Normal mood - Constitutional Vitals: Temp Pulse Resp BP Pulse Ox 98.9 F 79 18 146/80 96 10/31/17 16:00 10/31/17 16:00 10/31/17 16:00 10/31/17 16:00 10/31/17 16:00 General appearance: Present: no acute distress, other (with NRB mask) Results - Labs CBC & Chem 7: 10/30/17 04:29 11/01/17 05:29 Labs: Laboratory Last Values WBC 9.0 K/mm3 (4.5-11.0) 10/30/17 04:29 RBC 3.97 M/mm3 (3.65-5.03) 10/30/17 04:29 Hgb 12.5 gm/dl (10.1-14.3) 10/30/17 04:29 Hct 37.1 % (30.3-42.9) 10/30/17 04:29 MCV 94 fl (79-97) 10/30/17 04:29 MCH 32 pg (28-32) 10/30/17 04:29 MCHC 34 % (30-34) 10/30/17 04:29 RDW 14.2 % (13.2-15.2) 10/30/17 04:29 Plt Count 288 K/mm3 (140-440) 10/30/17 04:29 Lymph % (Auto) 27.9 % (13.4-35.0) 10/30/17 04:29 [place] % (Auto) 13.6 % (0.0-7.3) H 10/30/17 04:29 Eos % (Auto) 0.5 % (0.0-4.3) 10/30/17 04:29 Baso % (Auto) 0.3 % (0.0-1.8) 10/30/17 04:29 Lymph # 2.5 K/mm3 (1.2-5.4) 10/30/17 04:29 [place] # 1.2 K/mm3 (0.0-0.8) H 10/30/17 04:29 Eos # 0.0 K/mm3 (0.0-0.4) 10/30/17 04:29 Baso # 0.0 K/mm3 (0.0-0.1) 10/30/17 04:29 Seg Neutrophils % 57.7 % (40.0-70.0) 10/30/17 04:29 Seg Neutrophils # 5.2 K/mm3 (1.8-7.7) 10/30/17 04:29 PT 12.4 Sec. (12.2-14.9) 10/28/17 03:50 INR 0.88 (0.87-1.13) 10/28/17 03:50 APTT 29.3 Sec. (24.2-36.6) 10/28/17 03:50 Sodium 138 mmol/L (137-145) 10/30/17 04:29 Potassium 3.6 mmol/L (3.6-5.0) 10/30/17 04:29 Chloride 100.3 mmol/L (98-107) 10/30/17 04:29 Carbon Dioxide 30 mmol/L (22-30) 10/30/17 04:29 Anion Gap 11 mmol/L 10/30/17 04:29 BUN 5 mg/dL (7-17) L 10/30/17 04:29 Creatinine 0.6 mg/dL (0.7-1.2) L 10/30/17 04:29 Estimated GFR > 60 ml/min 10/30/17 04:29 BUN/Creatinine Ratio 8 % 10/30/17 04:29 Glucose 108 mg/dL (65-100) H 10/30/17 04:29 Lactic Acid 1.10 mmol/L (0.7-2.0) 10/28/17 13:18 Calcium 8.1 mg/dL (8.4-10.2) L 10/30/17 04:29 Urine Color Yellow (Yellow) 10/28/17 11:30 Urine Turbidity Clear (Clear) 10/28/17 11:30 Urine pH 5.0 (5.0-7.0) 10/28/17 11:30 Ur Specific [place] 1.023 (1.003-1.030) 10/28/17 11:30 Urine Protein <15 mg/dl mg/dL (Negative) 10/28/17 11:30 Urine Glucose (UA) 50 mg/dL (Negative) 10/28/17 11:30 Urine Ketones Neg mg/dL (Negative) 10/28/17 11:30 Urine Blood Mod (Negative) 10/28/17 11:30 Urine Nitrite Neg (Negative) 10/28/17 11:30 Urine Bilirubin Neg (Negative) 10/28/17 11:30 Urine Urobilinogen < 2.0 mg/dL (<2.0) 10/28/17 11:30 Ur Leukocyte Esterase Neg (Negative) 10/28/17 11:30 Urine WBC (Auto) 3.0 /HPF (0.0-6.0) 10/28/17 11:30 Urine RBC (Auto) 16.0 /HPF (0.0-6.0) 10/28/17 11:30 Urine Mucus Few /HPF 10/28/17 11:30 Blood Type B POSITIVE 10/28/17 03:55 Antibody Screen Negative 10/28/17 03:55
[2017-11-01] MEDS: D5/0.45NS 1,000 ML IV SCH ×2 (06:03→13:19)
[2017-11-01 06:12] LABS: Anion Gap 15 mmol/L; BUN/Creatinine Ratio 8; Blood Urea Nitrogen 5 mg/dL (7-17); Calcium 8.4 mg/dL (8.4-10.2); Carbon Dioxide 29 mmol/L (22-30); Chloride 101.8 mmol/L (98-107); Glucose 109 mg/dL (65-100); Potassium 3.7 mmol/L (3.6-5.0); Sodium 142 mmol/L (137-145)
[2017-11-01] MEDS: ZESTRIL PO SCH (11:09)
--- NOTE | 2017-11-01 11:22 | Progress Note ---
Assessment and Plan POD #4 Pt feeling well without compl. vidhi cl liq + flatus Abd soft, non tender. + BS stable advance to full liq diet Selected Entries 11/01/17 07:15 Temperature 98.0 F Pulse Rate 70 Respiratory 16 Rate Blood Pressure 138/68 Objective Vital Signs - 12hr 11/01/17 11/01/17 11/01/17 00:27 00:28 05:40 Temperature 98.9 F 98.5 F Pulse Rate 79 79 74 Respiratory 17 19 Rate Blood Pressure 134/73 130/75 O2 Sat by Pulse 95 95 96 Oximetry 11/01/17 11/01/17 05:41 07:15 Temperature 98.0 F Pulse Rate 67 70 Respiratory 16 Rate Blood Pressure 138/68 O2 Sat by Pulse 97 94 Oximetry - Labs 10/30/17 04:29 11/01/17 05:29 Diabetes panel 11/01/17 Range/Units 05:29 Sodium 142 (137-145) mmol/L Potassium 3.7 (3.6-5.0) mmol/L Chloride 101.8 (98-107) mmol/L Carbon Dioxide 29 (22-30) mmol/L BUN 5 L (7-17) mg/dL Creatinine 0.6 L (0.7-1.2) mg/dL Glucose 109 H (65-100) mg/dL Calcium 8.4 (8.4-10.2) mg/dL Calcium panel 11/01/17 Range/Units 05:29 Calcium 8.4 (8.4-10.2) mg/dL Pituitary panel 11/01/17 Range/Units 05:29 Sodium 142 (137-145) mmol/L Potassium 3.7 (3.6-5.0) mmol/L Chloride 101.8 (98-107) mmol/L Carbon Dioxide 29 (22-30) mmol/L BUN 5 L (7-17) mg/dL Creatinine 0.6 L (0.7-1.2) mg/dL Glucose 109 H (65-100) mg/dL Calcium 8.4 (8.4-10.2) mg/dL Adrenal panel 11/01/17 Range/Units 05:29 Sodium 142 (137-145) mmol/L Potassium 3.7 (3.6-5.0) mmol/L Chloride 101.8 (98-107) mmol/L Carbon Dioxide 29 (22-30) mmol/L BUN 5 L (7-17) mg/dL Creatinine 0.6 L (0.7-1.2) mg/dL Glucose 109 H (65-100) mg/dL Calcium 8.4 (8.4-10.2) mg/dL
[2017-11-02] MEDS: ZESTRIL PO SCH ×2 (02:05→10:01)
[2017-11-02] MEDS: D5/0.45NS 1,000 ML IV SCH (03:54)
--- NOTE | 2017-11-02 04:58 | Progress Note ---
Assessment and Plan Assessment and plan: Small bowel obstruction due to incacerated inguinal hernia s/p exploratory lap, reduction of hernia, hernia repair and mesh placement. On clear liquid diet. To advance to full loquid diet. No abdominal pain. Incacerated inguinal hernia s/p surgery Hypertension. BP stable. Resume Lisinopril from home DVT prophylaxis with SCDs. She is ambulatory. Full code status. Likely d/c home in 1-2 days. History Interval history: Patient had surgery 2 days ago for small bowel obstruction from incarcerated inguinal hernia . Started on full liquid diet, No abdominal pain, No vomiting had bowel movement Hospitalist Physical - Physical exam Narrative exam: GEN APPEARANCE : Not in acute distress,lying on bed HEENT: Normocephalic Atraumatic NECK : supple, no JVD LUNGS: clear to auscultation bilaterally, no rales, no wheeze HEART: S1 and S2 regular, no murmurs, rubs or gallop, ABD: Soft, mild tender,abdominal binder, no distension, bowel sounds present EXT: No edema, no clubbing, no cyanosis NEURO: Awake,alert,oriented x 3, moves all extremities, non focal Psych: Normal mood - Constitutional Vitals: Temp Pulse Resp BP Pulse Ox 99.0 F 80 18 137/67 97 11/02/17 00:26 11/02/17 00:26 11/02/17 00:26 11/02/17 00:26 11/02/17 00:26 General appearance: Present: no acute distress, other (with NRB mask) Results - Labs CBC & Chem 7: 10/30/17 04:29 11/01/17 05:29 Labs: Laboratory Last Values WBC 9.0 K/mm3 (4.5-11.0) 10/30/17 04:29 RBC 3.97 M/mm3 (3.65-5.03) 10/30/17 04:29 Hgb 12.5 gm/dl (10.1-14.3) 10/30/17 04:29 Hct 37.1 % (30.3-42.9) 10/30/17 04:29 MCV 94 fl (79-97) 10/30/17 04:29 MCH 32 pg (28-32) 10/30/17 04:29 MCHC 34 % (30-34) 10/30/17 04:29 RDW 14.2 % (13.2-15.2) 10/30/17 04:29 Plt Count 288 K/mm3 (140-440) 10/30/17 04:29 Lymph % (Auto) 27.9 % (13.4-35.0) 10/30/17 04:29 [place] % (Auto) 13.6 % (0.0-7.3) H 10/30/17 04:29 Eos % (Auto) 0.5 % (0.0-4.3) 10/30/17 04:29 Baso % (Auto) 0.3 % (0.0-1.8) 10/30/17 04:29 Lymph # 2.5 K/mm3 (1.2-5.4) 10/30/17 04:29 [place] # 1.2 K/mm3 (0.0-0.8) H 10/30/17 04:29 Eos # 0.0 K/mm3 (0.0-0.4) 10/30/17 04:29 Baso # 0.0 K/mm3 (0.0-0.1) 10/30/17 04:29 Seg Neutrophils % 57.7 % (40.0-70.0) 10/30/17 04:29 Seg Neutrophils # 5.2 K/mm3 (1.8-7.7) 10/30/17 04:29 PT 12.4 Sec. (12.2-14.9) 10/28/17 03:50 INR 0.88 (0.87-1.13) 10/28/17 03:50 APTT 29.3 Sec. (24.2-36.6) 10/28/17 03:50 Sodium 142 mmol/L (137-145) 11/01/17 05:29 Potassium 3.7 mmol/L (3.6-5.0) 11/01/17 05:29 Chloride 101.8 mmol/L (98-107) 11/01/17 05:29 Carbon Dioxide 29 mmol/L (22-30) 11/01/17 05:29 Anion Gap 15 mmol/L 11/01/17 05:29 BUN 5 mg/dL (7-17) L 11/01/17 05:29 Creatinine 0.6 mg/dL (0.7-1.2) L 11/01/17 05:29 Estimated GFR > 60 ml/min 11/01/17 05:29 BUN/Creatinine Ratio 8 % 11/01/17 05:29 Glucose 109 mg/dL (65-100) H 11/01/17 05:29 Lactic Acid 1.10 mmol/L (0.7-2.0) 10/28/17 13:18 Calcium 8.4 mg/dL (8.4-10.2) 11/01/17 05:29 Urine Color Yellow (Yellow) 10/28/17 11:30 Urine Turbidity Clear (Clear) 10/28/17 11:30 Urine pH 5.0 (5.0-7.0) 10/28/17 11:30 Ur Specific [place] 1.023 (1.003-1.030) 10/28/17 11:30 Urine Protein <15 mg/dl mg/dL (Negative) 10/28/17 11:30 Urine Glucose (UA) 50 mg/dL (Negative) 10/28/17 11:30 Urine Ketones Neg mg/dL (Negative) 10/28/17 11:30 Urine Blood Mod (Negative) 10/28/17 11:30 Urine Nitrite Neg (Negative) 10/28/17 11:30 Urine Bilirubin Neg (Negative) 10/28/17 11:30 Urine Urobilinogen < 2.0 mg/dL (<2.0) 10/28/17 11:30 Ur Leukocyte Esterase Neg (Negative) 10/28/17 11:30 Urine WBC (Auto) 3.0 /HPF (0.0-6.0) 10/28/17 11:30 Urine RBC (Auto) 16.0 /HPF (0.0-6.0) 10/28/17 11:30 Urine Mucus Few /HPF 10/28/17 11:30 Blood Type B POSITIVE 10/28/17 03:55 Antibody Screen Negative 10/28/17 03:55
--- NOTE | 2017-11-02 08:04 | Progress Note ---
Assessment and Plan POD # 5 Pt feeling well. vidhi full liq Abd soft. incision clean & dry surgically stable advance to solid diet d/c viet in am. probable d/c in am if diet vidhi Objective Vital Signs - 12hr 11/01/17 11/01/17 11/02/17 21:34 22:00 00:26 Temperature 99.0 F Pulse Rate 80 Respiratory 20 18 Rate Blood Pressure 137/67 Blood Pressure [Left] O2 Sat by Pulse 97 97 Oximetry 11/02/17 11/02/17 11/02/17 05:20 05:26 05:30 Temperature 99.2 F 98.0 F Pulse Rate 89 73 Respiratory 18 18 Rate Blood Pressure 107/53 Blood Pressure 97/61 [Left] O2 Sat by Pulse 95 93 Oximetry - Labs 10/30/17 04:29 11/01/17 05:29
--- NOTE | 2017-11-02 10:56 | Progress Note ---
Assessment and Plan Assessment and plan: Small bowel obstruction due to incacerated inguinal hernia s/p exploratory lap, reduction of hernia, hernia repair and mesh placement. On full liquiddiet. To advance to solid diet- low fat, low sodium. May discharge home tomorrow if tolerates diet. Discussed with Dr. Pérez, Surgeon. Incacerated inguinal hernia s/p surgery Hypertension. BP stable. Continue Lisinopril DVT prophylaxis with SCDs. She is ambulatory. Full code status. Likely d/c home tomorrow. History Interval history: Patient had surgery for small bowel obstruction from incarcerated inguinal hernia . Started on full liquid diet, No abdominal pain, No vomiting had bowel movement Hospitalist Physical - Physical exam Narrative exam: GEN APPEARANCE : Not in acute distress,lying on bed HEENT: Normocephalic Atraumatic NECK : supple, no JVD LUNGS: clear to auscultation bilaterally, no rales, no wheeze HEART: S1 and S2 regular, no murmurs, rubs or gallop, ABD: Soft, mild tender,abdominal binder, no distension, bowel sounds normal EXT: No edema, no clubbing, no cyanosis NEURO: Awake,alert,oriented x 3, moves all extremities, non focal Psych: Normal mood - Constitutional Vitals: Temp Pulse Resp BP Pulse Ox 98.5 F 71 18 123/62 96 11/02/17 08:06 11/02/17 10:01 11/02/17 08:06 11/02/17 10:01 11/02/17 08:06 General appearance: Present: no acute distress, other (with NRB mask) Results - Labs CBC & Chem 7: 10/30/17 04:29 11/01/17 05:29 Labs: Laboratory Last Values WBC 9.0 K/mm3 (4.5-11.0) 10/30/17 04:29 RBC 3.97 M/mm3 (3.65-5.03) 10/30/17 04:29 Hgb 12.5 gm/dl (10.1-14.3) 10/30/17 04:29 Hct 37.1 % (30.3-42.9) 10/30/17 04:29 MCV 94 fl (79-97) 10/30/17 04:29 MCH 32 pg (28-32) 10/30/17 04:29 MCHC 34 % (30-34) 10/30/17 04:29 RDW 14.2 % (13.2-15.2) 10/30/17 04:29 Plt Count 288 K/mm3 (140-440) 10/30/17 04:29 Lymph % (Auto) 27.9 % (13.4-35.0) 10/30/17 04:29 [place] % (Auto) 13.6 % (0.0-7.3) H 10/30/17 04:29 Eos % (Auto) 0.5 % (0.0-4.3) 10/30/17 04:29 Baso % (Auto) 0.3 % (0.0-1.8) 10/30/17 04:29 Lymph # 2.5 K/mm3 (1.2-5.4) 10/30/17 04:29 [place] # 1.2 K/mm3 (0.0-0.8) H 10/30/17 04:29 Eos # 0.0 K/mm3 (0.0-0.4) 10/30/17 04:29 Baso # 0.0 K/mm3 (0.0-0.1) 10/30/17 04:29 Seg Neutrophils % 57.7 % (40.0-70.0) 10/30/17 04:29 Seg Neutrophils # 5.2 K/mm3 (1.8-7.7) 10/30/17 04:29 PT 12.4 Sec. (12.2-14.9) 10/28/17 03:50 INR 0.88 (0.87-1.13) 10/28/17 03:50 APTT 29.3 Sec. (24.2-36.6) 10/28/17 03:50 Sodium 142 mmol/L (137-145) 11/01/17 05:29 Potassium 3.7 mmol/L (3.6-5.0) 11/01/17 05:29 Chloride 101.8 mmol/L (98-107) 11/01/17 05:29 Carbon Dioxide 29 mmol/L (22-30) 11/01/17 05:29 Anion Gap 15 mmol/L 11/01/17 05:29 BUN 5 mg/dL (7-17) L 11/01/17 05:29 Creatinine 0.6 mg/dL (0.7-1.2) L 11/01/17 05:29 Estimated GFR > 60 ml/min 11/01/17 05:29 BUN/Creatinine Ratio 8 % 11/01/17 05:29 Glucose 109 mg/dL (65-100) H 11/01/17 05:29 Lactic Acid 1.10 mmol/L (0.7-2.0) 10/28/17 13:18 Calcium 8.4 mg/dL (8.4-10.2) 11/01/17 05:29 Urine Color Yellow (Yellow) 10/28/17 11:30 Urine Turbidity Clear (Clear) 10/28/17 11:30 Urine pH 5.0 (5.0-7.0) 10/28/17 11:30 Ur Specific [place] 1.023 (1.003-1.030) 10/28/17 11:30 Urine Protein <15 mg/dl mg/dL (Negative) 10/28/17 11:30 Urine Glucose (UA) 50 mg/dL (Negative) 10/28/17 11:30 Urine Ketones Neg mg/dL (Negative) 10/28/17 11:30 Urine Blood Mod (Negative) 10/28/17 11:30 Urine Nitrite Neg (Negative) 10/28/17 11:30 Urine Bilirubin Neg (Negative) 10/28/17 11:30 Urine Urobilinogen < 2.0 mg/dL (<2.0) 10/28/17 11:30 Ur Leukocyte Esterase Neg (Negative) 10/28/17 11:30 Urine WBC (Auto) 3.0 /HPF (0.0-6.0) 10/28/17 11:30 Urine RBC (Auto) 16.0 /HPF (0.0-6.0) 10/28/17 11:30 Urine Mucus Few /HPF 10/28/17 11:30 Blood Type B POSITIVE 10/28/17 03:55 Antibody Screen Negative 10/28/17 03:55
[2017-11-03] MEDS: ZESTRIL PO SCH (09:00)
--- NOTE | 2017-11-03 13:21 | Progress Note ---
Assessment and Plan Pt feeling well without compl. eager to go home. vidhi reg diet Abd soft, non tender. incision clean & dry d/c viet march d/c from surg perspective rto Thursday Objective Vital Signs - 12hr 11/03/17 11/03/17 04:51 08:00 Temperature 98.9 F 98.6 F Pulse Rate 70 84 Respiratory 18 Rate Blood Pressure 90/57 121/73 [Left] O2 Sat by Pulse 96 Oximetry - Labs 10/30/17 04:29 11/01/17 05:29
--- NOTE | 2017-11-03 13:52 | Discharge Summary ---
Providers - Providers Date of Admission: 10/28/17 04:33 Date of discharge: 11/03/17 Attending physician: KAREN MAIN 10/28/17 03:58 Consult to Physician [CONS] Urgent Consulting Provider: ALEXNADRO MOJICA Reason For Exam: sbo Place consult to:: DR. MOJICA Notified:: awaiting call back Primary care physician: LÓPEZ HOLT MD Hospitalization Condition: Good Hospital course: Patient is 52 yo with hypertension presented with abdominal pain. She had gone to outpatient facility at [facility] and CT abdomen revealed incarcerated inguinal hernia with partial small bowel obstruction. She was made NPO, admitted and surgeon consulted. She was taken to OR and had laparotomy, hernia repair and mesh placement. Post operatively she did well. She was initially NPO, then diet advanced to liquid ,then to solid and she was then discharged home on 11/03/17. [place] from surgical wound removed on day of discharge. Total time spent on discharge,35 mins Disposition: DC-01 TO HOME OR SELFCARE - Discharge Diagnoses (1) Small bowel obstruction Status: Acute (2) HTN (hypertension) Status: Acute (3) Incarcerated inguinal hernia Status: Acute Core Measure Documentation - Palliative Care Palliative Care/ Comfort Measures: Not Applicable - Core Measures Any of the following diagnoses?: none Exam - Physical Exam Narrative exam: GEN APPEARANCE : Not in acute distress,lying on bed HEENT: Normocephalic Atraumatic NECK : supple, no JVD LUNGS: clear to auscultation bilaterally, no rales, no wheeze HEART: S1 and S2 regular, no murmurs, rubs or gallop, ABD: Soft, mild tender,abdominal binder, no distension, bowel sounds normal EXT: No edema, no clubbing, no cyanosis NEURO: Awake,alert,oriented x 3, moves all extremities, non focal Psych: Normal mood - Constitutional Vitals: Temp Pulse Resp BP Pulse Ox 98.6 F 84 18 121/73 96 11/03/17 08:00 11/03/17 08:00 11/03/17 08:00 11/03/17 08:00 11/03/17 08:00 Plan Activity: no restrictions Diet: low fat, low cholesterol, low salt Additional Instructions: 1.Follow up with PCP in 1 week. 2.Follow up with Dr. Mojica on [id number]/11/17 Follow up with: PRIMARY CARE, [Primary Care Provider] - 3-5 Days Prescriptions: HYDROcodone/ACETAMINOPHEN [[place] 5-325 Tablet] 1 each PO Q6H #10 tablet
[2017-11-03 15:56] VITALS: BP 122/74
== END 2017-11-03 18:35 | disposition home or self-care (01) | DRG 854 ==
LOC: ED 03:19 → 3A 04:33 → 3B-SURG 06:53
PROVIDERS: ADMIT Internal Medicine; ATTEND Internal Medicine
PROC: 0YU50JZ Supplement Right Inguinal Region with Synthetic Substitute, Open Approach (ICD-10-PCS; principal; 2017-10-28)
DX: A41.9 Sepsis, unspecified organism (principal); K40.30 Unilateral inguinal hernia, with obstruction, without gangrene, not specified as recurrent; I10 Essential (primary) hypertension; Z88.3 Allergy status to other anti-infective agents; Z88.2 Allergy status to sulfonamides; Z88.8 Allergy status to other drugs, medicaments and biological substances; Z90.710 Acquired absence of both cervix and uterus
CPT/HCPCS: 36415; 80048; 81001; 82140; 85025; 85610; 85730; 86850; 86900; 86901; 87040; 94760; 96361; 96374; 96375; J0330; J1100; J1170; J1885; J2270; J2405; J2543; J2704; J2710; J3010; J3370; J7030; J7040; J7120